=== PATIENT | female | born 2000 | race African-American/Black ===

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

== ENCOUNTER 2021-03-25 18:43 | Emergency (ER) | payer OTHER ==
[~2021-03-25] VITALS: Ht 160 cm; Wt 48.1 kg
[~2021-03-25 18:43] MED LIST changes: +CEPHALEXIN500 MG PO; +LIDOCAINE VISC100 ML TOP
[2021-03-25 18:56] VITALS: BP 120/75
[2021-03-25 19:07] LABS: URINE BILIRUBIN NEGATIVE (Negative); URINE BLOOD NEGATIVE (Negative); URINE CLARITY CLEAR; URINE COLOR YELLOW; URINE GLUCOSE-RANDOM* NEGATIVE (Negative); URINE KETONES NEGATIVE (Negative); URINE LEUKOCYTES-REFLEX NEGATIVE (Negative); URINE NITRITE-REFLEX NEGATIVE (Negative); URINE PROTEIN (DIPSTICK) NEGATIVE (Negative); URINE SPECIFIC GRAVITY 1.025 (1.005-1.035); URINE UROBILINOGEN 0.2 E.U./dl (0.2-1.0)
[2021-03-25] MEDS ORDERED: METRONIDAZOLE500 M4 PO (20:03)
[2021-03-25] MEDS ORDERED: DIFLUCAN150 MG PO (20:03)
== END 2021-03-25 20:12 | disposition home or self-care (01) ==
LOC: ER 18:43
PROVIDERS: Emergency Medicine; Nurse Practitioner Family
DX: N76.0 Acute vaginitis (principal); B37.9 Candidiasis, unspecified; B96.89 Other specified bacterial agents as the cause of diseases classified elsewhere

== ENCOUNTER 2021-04-20 22:28 | Emergency (ER) | payer OTHER ==
[~2021-04-20] VITALS: Ht 160 cm; Wt 48.1 kg
[~2021-04-20 22:28] MED LIST changes: +METRONIDAZOLE500 M4 PO
[2021-04-20] MEDS ORDERED: APAP W/CODEINE1 TA2 PO (22:45)
[2021-04-20] MEDS ORDERED: DOXYCYCLINE 10100 MG PO (22:45)
[2021-04-20] MEDS ORDERED: CENTANY30 GM TOP (22:46)
[2021-04-20 22:53] VITALS: BP 122/68
== END 2021-04-20 22:57 | disposition home or self-care (01) ==
LOC: ER 22:28
DX: L02.235 Carbuncle of perineum (principal); L02.225 Furuncle of perineum; Z79.899 Other long term (current) drug therapy

== ENCOUNTER 2021-05-23 08:43 | Emergency (ER) | payer OTHER ==
[~2021-05-23] VITALS: Ht 165.1 cm; Wt 49.9 kg
[2021-05-23 08:43] VITALS: BP 124/64
[~2021-05-23 08:43] MED LIST changes: +APAP W/CODEINE1 TA2 PO; +CENTANY30 GM TOP; +DOXYCYCLINE 10100 MG PO
[2021-05-23] MEDS ORDERED: CENTANY30 GM TOP (09:48)
[2021-05-23] MEDS ORDERED: DOXYCYCLINE 10100 MG PO (09:48)
== END 2021-05-23 09:49 | disposition home or self-care (01) ==
LOC: ER 08:43
DX: N76.4 Abscess of vulva (principal); F12.90 Cannabis use, unspecified, uncomplicated; Z79.899 Other long term (current) drug therapy